=== PATIENT | female | born 1935 | race African-American/Black ===

== ENCOUNTER → 2016-12-23 | Day surgery (SDC) | payer OTHER ==
[~2016-12-23] VITALS: Ht 162.6 cm; Wt 78.9 kg
[~2016-12-23] MED LIST: ASPIR-LOW81 MG PO; ATORVASTATIN CA40 MG ORAL; BSS 15ml BTL ONE; BSS 500ml btl ONE; COZAAR25 MG PO; Dexamethasone 4mg/ml vial ONE; EPINEPHrine 1mg/1ml Amp ONE; LR 1000ml ONE; Lidocaine 1% MPF 10mg/ml 5ml ONE; METFORMIN HCL500 M1 ORAL; Midazolam 2mg/2ml Inj ONE; NAPROXEN PO; NS Irrig 1000ml ONE; PLAVIX75 MG PO; Povidone-Iodine 5% opth solution ONE; SIMVASTATIN20 MG PO; Sodium Hyaluronate 14 mg/ml 0.85ml ONE; Sterile Water Irrig 1000ml IRRIG ONE; WHEELCHAIR1 EACH MC
--- NOTE | 2016-12-23 07:45 | Pre-Procedure Note/Attestation ---
Pre-Procedure Note/Attestation Complete Prior to Procedure Planned Procedure: left Procedure Narrative: cataract extraction with implant left eye Indications for Procedure Pre-Operative Diagnosis: cataract left eye Attestation I attest that I discussed the nature of the procedure; its benefits; risks and complications; and alternatives (and the risks and benefits of such alternatives ), prior to the procedure, with the patient (or the patient's legal outbound call center representative). I attest that, if there was a reasonable possibility of needing a blood transfusion, the patient (or the patient's legal outbound call center representative) was given the [facility] standardized written summary, pursuant to the Piyush Amelia Blood Safety Act ([place] Health and Safety Code # 1645, as amended). I attest that I re-evaluated the patient just prior to the surgery and that there has been no change in the patient's H&P, except as documented below: IKE POLLARD Dec 23, 2016 07:45
[2016-12-23] MEDS: Gatifloxacin Opth Solution 0.5% LEFT EYE SCH ×2 (08:29→08:50)
[2016-12-23] MEDS: Tobradex Opth Susp 2.5ml LEFT EYE SCH ×2 (08:30→08:50)
[2016-12-23] MEDS: Tropicamide 1% Opth Soln LEFT EYE SCH ×2 (08:30→08:49)
[2016-12-23] MEDS: Diclofenac Sod 0.1% Op Soln LEFT EYE SCH ×2 (08:31→08:50)
[2016-12-23] MEDS: Phenylephrine 2.5% Op Soln LEFT EYE SCH ×2 (08:31→08:49)
[2016-12-23] MEDS: Akten 3.5% 1ml Btl LEFT EYE SCH ×2 (08:32→08:50)
[2016-12-23 08:33] VITALS: BP 157/79
--- NOTE | 2016-12-23 09:20 | Anethesia Preoperative Eval ---
Anesthesia Pre-op PMH/ROS General Date of Evaluation: Dec 23, 2016 Time of Evaluation: 09:17 Anesthesiologist: luis ASA Score: ASA 3 Mallampati Score Class I : Soft palate, uvula, fauces, pillars visible Class II: Soft palate, uvula, fauces visible Class III: Soft palate, base of uvula visible Class IV: Only hard plate visible Mallampati Classification: Class III Surgeon: deepak Diagnosis: cataract Surgical Procedure: cataract extraction Anesthesia History: none Family History: no anesthesia problems Allergies: Coded Allergies: SULFA (SULFONAMIDE ANTIBIOTICS) (Verified Allergy, Mild, UNKNOWN, 12/22/16) SULFONYLUREAS (Verified Allergy, Unknown, 07/06/11) Medications: see eMAR Past Medical History Cardiovascular: Reports: HTN Pulmonary: Reports: asthma Gastrointestinal/Genitourinary: Denies: CRI, ESRD, GERD, other Neurologic/Psychiatric: Reports: CVA Endocrine: Reports: DM HEENT: Reports: cataract (L) Hematology/Immune: Denies: DVT, anemia, bleeding disorder, other Musculoskeletal/Integumentary: Denies: DDD, DJD, OA, RA, edema, other PSxH Narrative: tubaligation; appendectomy Anesthesia Pre-op Phys. Exam Physician Exam Last Vital Signs Date Time Temp Pulse Resp B/P Pulse Ox O2 Delivery O2 Flow Rate FiO2 12/23/16 08:33 97.2 72 18 157/79 100 Room Air Constitutional: NAD Neurologic: CN 2-12 intact Cardiovascular: RRR Respiratory: CTA Gastrointestinal: S/NT/ND Airway Exam Mallampati Classification 3 Mallampati Score: Class III MO: full ROM: full Dentures: no lower, no upper Anesthesia Pre-op A/P Labs wnl Studies Pre-op Studies: EKG - SR Risk Assessment & Plan Plan: mac Status Change Before Surgery: No Pre-Antibiotics Drug: none PERCY CASTORENA CRNA Dec 23, 2016 09:19
[2016-12-23 09:32] VITALS: BP 142/66
--- NOTE | 2016-12-23 09:35 | Brief Operative Note ---
Immediate Post Operative Note Operative Note Pre-op Diagnosis: cataract left eye Procedure: phacoemulsification of cataract with implant left eye Post-op Diagnosis: same as pre-op Surgeon: ike sotelo Statistician Applied: none Anesthesiologist: munir smith crna Anesthesia: MAC Specimen: none Complications: none Condition: stable Estimated Blood Loss: none Drains: none Implant(s) used?: Yes IKE SOTELO Dec 23, 2016 09:35
[2016-12-23 09:37] VITALS: BP 147/70
--- NOTE | 2016-12-23 09:38 | Immediate Post-Op Evaluation ---
Immediate Post-Op Evalulation Immediate Post-Op Evalulation Procedure: cataract extraction left eye Date of Evaluation: Dec 23, 2016 Time of Evaluation: 09:37 IV Fluids: 300 Blood Pressure Systolic: 147 Blood Pressure Diastolic: 78 Pulse Rate: 62 Respiratory Rate: 13 O2 Sat by Pulse Oximetry: 100 Temperature (Fahrenheit): 97.8 Nausea: No Vomiting: No Complications none Patient Status: awake, patent Hydration Status: adequate Drug: none JONHRIPERCY COOPER CRNA Dec 23, 2016 09:38
[2016-12-23 09:42] VITALS: BP 152/71
[2016-12-23 09:55] VITALS: BP 157/75
--- NOTE | 2016-12-23 09:56 | 48 Hour Post Anesthesia Eval ---
Post Anesthesia Evaluation Procedure: cataract extraction left eye Date of Evaluation: Dec 23, 2016 Time of Evaluation: 09:55 Blood Pressure Systolic: 157 0: 75 Pulse Rate: 59 Respiratory Rate: 10 O2 Sat by Pulse Oximetry: 100 Airway: patent Nausea: No Hydration Status: adequate Mental Status/LOC: patient returned to baseline Post-Anesthesia Complications: none Follow-up care needed: N/A PERCY CASTORENA CRNA Dec 23, 2016 09:55
[2016-12-23 10:05] VITALS: BP 153/68
--- NOTE | 2016-12-23 12:58 | Operative Note - Dictated ---
DATE OF OPERATION: 12/23/2016 PREOPERATIVE DIAGNOSIS: Cataract, left eye. POSTOPERATIVE DIAGNOSIS: Cataract, left eye. PROCEDURE: Phacoemulsification cataract left eye with placement of posterior chamber intraocular lens. SURGEON: Oli Escamilla M.D. BODY JOINER: None. ANESTHESIA: MAC/topical. ANESTHESIOLOGIST: Ara Melara C.R.N.A. INDICATION FOR PROCEDURE: Poor vision, left eye DESCRIPTION OF FINDINGS: Nuclear sclerotic and cortical cataract, left eye. DESCRIPTION OF PROCEDURE: The patient received a topical anesthetic block consisting of 3.5% Akten eye drops. The eye was then prepped and draped in usual manner. A lid speculum was placed. An operating Zeiss microscope was positioned. A temporal corneal groove was made with the andrew blade. A SuperSharp blade made a stab incision at the 6 o'clock position. A 0.1 mL of 1% nonpreserved intracameral lidocaine was injected. Healon was instilled into the anterior chamber and a 2.5/2.8 mm trapezoidal andrew blade was used to complete the temporal corneal wound. A cystotome was used to create an anterior capsular flap. Utrata forceps were used to complete the capsulorrhexis. BSS on a cannula was used to hydrodissect the nucleus. The lens nucleus was phacoemulsified in a phaco-fracture technique. Remaining cortical material was removed with the I/A and the posterior capsule polished with the I/A on Cap vac. Healon was reinstilled into the capsular bag and anterior chamber, and an Del Angel foldable one-piece posterior chamber intraocular lens, model ZCB00, power 27.0 diopter, serial #[id number] was placed in the injector. The lens was put into the capsular bag. The I/A tip was used to remove the Healon position the lens. The wound edge was hydrated with BSS and a blunt-tipped cannula. The wound was checked and found to be watertight. The lid speculum was removed and a drop of TobraDex and Zymaxid was placed. A clear plastic shield was taped over the eye. The patient tolerated well and left the room in good condition. Oli Escamilla M.D. ([facility] [place]) DR: Charan JOB#: [id number] CC: Lupillo Slater M.D. MTDD
== END | disposition home or self-care (01) ==
LOC: SUR 06:39
DX: H25.12 Age-related nuclear cataract, left eye (principal); H25.012 Cortical age-related cataract, left eye; E11.9 Type 2 diabetes mellitus without complications; J45.909 Unspecified asthma, uncomplicated; I10 Essential (primary) hypertension; I70.0 Atherosclerosis of aorta; Z79.84 Long term (current) use of oral hypoglycemic drugs; Z86.73 Personal history of transient ischemic attack (TIA), and cerebral infarction without residual deficits; Z87.891 Personal history of nicotine dependence; Z90.49 Acquired absence of other specified parts of digestive tract; Z98.51 Tubal ligation status; Z79.1 Long term (current) use of non-steroidal anti-inflammatories (NSAID); Z79.02 Long term (current) use of antithrombotics/antiplatelets; Z88.2 Allergy status to sulfonamides; Z88.8 Allergy status to other drugs, medicaments and biological substances
CPT/HCPCS: 66984; 82962; J0171; J1100; J2250; J7120; V2632; 94003; 94150

== ENCOUNTER 2020-02-12 12:03 | Emergency (ER) | payer MEDICARE, OTHER ==
[~2020-02-12] VITALS: Ht 162.6 cm; Wt 65.8 kg
[~2020-02-12 12:03] MED LIST changes: -BSS 15ml BTL ONE; -BSS 500ml btl ONE; -Dexamethasone 4mg/ml vial ONE; -EPINEPHrine 1mg/1ml Amp ONE; -LR 1000ml ONE; -Lidocaine 1% MPF 10mg/ml 5ml ONE; -Midazolam 2mg/2ml Inj ONE; -NS Irrig 1000ml ONE; -Povidone-Iodine 5% opth solution ONE; -Sodium Hyaluronate 14 mg/ml 0.85ml ONE; -Sterile Water Irrig 1000ml IRRIG ONE
--- NOTE | 2020-02-12 12:31 | NUR ---
ED Nurse Note: [phone]: Ronak (daughter)
--- NOTE | 2020-02-12 12:38 | NUR ---
ED Nurse Note: Pt walked into ED w/ sister. Pt fell at home 1 ago. Pt is alert and orientedx4, ambulatory with assistance but weak. Pt has pain on bilateral legs. Pt has history of stroke. She is set up on monitor. Pt has cast on L arm.
[2020-02-12 12:54] VITALS: BP 160/73
--- NOTE | 2020-02-12 12:55 | Emergency Room Report ---
History of Present Illness General Chief Complaint: Multiple Trauma/Fall Source: Patient, Family Member Present Illness HPI Patient presents with complaints of trip and fall to the left side having increased pain to the left knee and the left wrist Patient has had a previous stroke It does affect her speech And therefore I did make contact with the patient's sister who is in the waiting room she reported the patient has had residual findings after her stroke in 2011 And they were mainly concerned about the traumatic injuries to the left knee and the left wrist Patient denies any chest pain denies any shortness of breath denies any other acute weakness focally Allergies: Coded Allergies: SULFA (SULFONAMIDE ANTIBIOTICS) (Verified Allergy, Mild, UNKNOWN, 12/22/16) SULFONYLUREAS (Verified Allergy, Unknown, 07/06/11) COVID-19 Screening Contact w/high risk pt: No Recent Travel to affected area: No Experienced COVID-19 symptoms?: No Patient History Past Medical History: see triage record Reviewed Nursing Documentation: PMH: Agreed; PSxH: Agreed Nursing Documentation-PMH Hx Cardiac Problems: No Hx Hypertension: Yes Hx Pacemaker: No Hx Asthma: Yes - IN THE PAST Hx COPD: No Hx Diabetes: Yes Hx Cancer: No Hx Gastrointestinal Problems: Yes Hx Dialysis: No Hx Neurological Problems: Yes Hx Cerebrovascular Accident: Yes - 2011 Hx Seizures: No Review of Systems All Other Systems: negative except mentioned in HPI Physical Exam Vital Signs Date Time Temp Pulse Resp B/P (MAP) Pulse Ox O2 Delivery O2 Flow Rate FiO2 02/12/20 12:19 98.4 80 19 175/75 (108) 97 Room Air Sp02 EP Interpretation: reviewed, normal General Appearance: well appearing, no apparent distress Head: normocephalic, atraumatic Eyes: bilateral eye PERRL ENT: EOM grossly intact Neck: full range of motion, supple Respiratory: lungs clear, no respiratory distress, no retraction Cardiovascular #1: regular rate, rhythm Gastrointestinal: non tender, soft Musculoskeletal: other - And on palpation of the left knee no obvious ecchymosis the left wrist also is uncomfortable at the base of the wrist no open wounds Neurologic: alert, oriented x3, other - Patient's speech is somewhat slurred however speaking with family this is normal for the patient however they do feel that it has slowly been worsening and will follow closely Psychiatric: normal inspection Skin: no rash Lymphatic: no adenopathy Medical Decision Making Diagnostic Impression: Primary Impression: Contusion ER Course After speaking further to the patient's sister she reports that they are mainly concerned about the mechanical fall and injury to the left knee and the wrist X-ray imaging is done there is no obvious acute process identified patient continues to rest appropriately and her blood pressure is significantly improved Patient imaging was reviewed by radiology and they questioned anomaly with the wrist however patient has no significant tenderness does not clinically correlate patient also has a splint on place a Velcro Which is left in place And patient stable for close outpatient follow-up Other X-Ray Diagnostic Results Other X-Ray Diagnostic Results #1: X-Ray ordered: Left knee # of Views/Limited Vs Complete: 4 View Indication: Pain EP Interpretation: Yes Interpretation: no dislocation, no soft tissue swelling, no fractures Impression: No acute disease Electronically Signed by: Harshil Donnelly DO Other X-Ray Diagnostic Results #2: X-Ray ordered: Left wrist # of Views/Limited Vs Complete: 3 View Indication: Pain EP Interpretation: Yes Interpretation: no dislocation, no soft tissue swelling, no fractures Impression: No acute disease - Questionable malalignment lunate region clinically does not correlate with patient's presentation, Electronically Signed by: Harshil Donnelly DO Last Vital Signs Date Time Temp Pulse Resp B/P (MAP) Pulse Ox O2 Delivery O2 Flow Rate FiO2 02/12/20 12:19 98.4 80 19 175/75 (108) 97 Room Air Status: improved Disposition: HOME, SELF-CARE Condition: Improved Referrals: NON PHYSICIAN (PCP) Additional Instructions: Patient is provided with the discharge instructions notified to follow up with primary doctor in the next 2-3 days otherwise return to the er with any worsening symptoms. Please note that this report is being documented using [employer] technology. This can lead to erroneous entry secondary to incorrect interpretation by the dictating instrument. Harshil Donnelly DO February 12, 2020 12:55
--- NOTE | 2020-02-12 13:43 | NUR ---
ER DISCHARGE NOTE: Patient is cleared to be discharged per ERMD, pt is aox4, on room air, with stable vital signs. pt was given dc and prescription instructions, pt was able to verbalize understanding, pt id band removed. pt is able to ambulate with steady gait. pt took all belongings. Pt educated regarding contusions.
[2020-02-12 13:44] VITALS: BP 154/71
--- NOTE | 2020-02-12 14:30 | Diagnostic Imaging Report ---
Clinical Indication:Trauma, pain Technique: 3 views of the left wrist Comparison: None Findings: Somewhat unusual bony alignment, with slight dorsal rotation of the lunate which may in part be an artifact of positioning. This makes assessment difficult. No definite fractures or dislocations. Impression: Questionable alignment abnormality, may be chronic real. Correlate with clinical findings No definite acute bony trauma Findings discussed by phone with Dr. Donnelly the time of interpretation
--- NOTE | 2020-02-12 14:34 | Diagnostic Imaging Report ---
Indication: Trauma, pain Technique: 3 views of the left knee Comparison: None Findings: There is a superior pole patellar traction osteophyte. No acute fractures. No dislocations. There is minimal medial compartmental degenerative joint space narrowing. No suprapatellar effusion. Impression: Degenerative changes. No acute bony trauma
== END 2020-02-12 13:44 | disposition home or self-care (01) ==
LOC: EMR 12:33
DX: M25.512 Pain in left shoulder (principal); M25.562 Pain in left knee; T14.8XXA Other injury of unspecified body region, initial encounter; Z86.73 Personal history of transient ischemic attack (TIA), and cerebral infarction without residual deficits; Z88.2 Allergy status to sulfonamides; I10 Essential (primary) hypertension; E11.9 Type 2 diabetes mellitus without complications; W01.0XXA Fall on same level from slipping, tripping and stumbling without subsequent striking against object, initial encounter; Y92.9 Unspecified place or not applicable
CPT/HCPCS: 99284